=== PATIENT | male | born 1955 | race Caucasian/White ===

== ENCOUNTER → 2017-05-08 | Day surgery (SDC) | payer BC, OTHER ==
[2017-04-27 07:44] VITALS: Ht 177.8 cm; Wt 75.0 kg
[~2017-05-08] VITALS: Ht 177.8 cm; Wt 75.0 kg
[~2017-05-08] MED LIST: ASPI81TA28 PO; LIDOCAINE HCL 2% 2 ML VIAL (20MG/ML) ONE; LPT10 PO; METO50TA8 PO; PROPOFOL IV EMULSION 10 MG/ML 20 ML VIAL IV ONE; PSYL0.524 PO; SODIUM CHLORIDE 0.9% 500ML 500 ML IV ONE
--- NOTE | 2017-05-08 14:44 | Endo History and Physical ---
History & Physical Date of Service: May 08, 2017. Chief Complaint: SCREENING Referring Physician: DR FRANCO History of Present Illness 61 yo CF who presents for screening colonoscopy. Past Surgical History Hx Cardiac Surgery: No Hx Internal Defibrillator: No Hx Pacemaker: No Hx Abdominal Surgery: No Hx of Implantable Prosthesis: No Hx Post-Op Nausea and Vomiting: No Hx Cancer Surgery: No Hx Thoracic Surgery: No Hx Orthopedic: No Hx Urinary Tract Surgery: No Family History None Social History Smoking Status: Never Smoker Hx Substance Use: No Hx Alcohol Use: Yes (OCCASIONAL) Allergies Coded Allergies: No Known Allergies (Verified , 05/08/17) Current Medications Reported Home Medications Medications Dose Route/Sig Max Daily Dose Days Date Category Metamucil (Psyllium) 0.52 Gm Cap 1 Dose PO DAILY 04/27/17 Reported Aspirin Ec (Aspirin) 81 Mg Tab 81 Mg PO DAILY 04/27/17 Reported Lipitor (Atorvastatin Calcium) 10 Mg Tab 1 Tab PO QPM 04/27/17 Reported Toprol-Xl (Metoprolol Succinate) 50 Mg Tabcr 50 Mg PO QPM 06/16/07 Reported Vital Signs Weight (Kilograms): 75 Height (Feet): 5 Height (Inches): 10 Date Time Temp Pulse Resp B/P (MAP) Pulse Ox O2 Delivery O2 Flow Rate FiO2 05/08/17 14:31 36.4 92 18 133/84 (100) 99 Room Air Physical Exam General Appearance: WD/WN, no apparent distress Respiratory/Chest: Auscultation: breath sounds normal Cardiovascular: Heart Auscultation: RRR Abdomen: Bowel Sounds: normal Inspection & Palpation: soft, non-distended, no tenderness, guarding & rebound Assessment and Plan Assessment: 61 yo CF who presents for screening colonoscopy. Plan: Proceed with colonoscopy.
--- NOTE | 2017-05-08 15:27 | Discharge Instructions ---
Endoscopy Patient Instructions Date / Procedure(s) Performed May 08, 2017. Colonoscopy Allergy Information Coded Allergies: No Known Allergies (Verified , 05/08/17) Discharge Date / Findings May 08, 2017. Internal hemorrhoids Medication Instructions Stopped Medication(s): ASPIRIN 81MG-05/06/17 OK to resume all medications today as prescribed Reported Home Medications Medications Dose Route/Sig Max Daily Dose Days Date Category Metamucil (Psyllium) 0.52 Gm Cap 1 Dose PO DAILY 04/27/17 Reported Aspirin Ec (Aspirin) 81 Mg Tab 81 Mg PO DAILY 04/27/17 Reported Lipitor (Atorvastatin Calcium) 10 Mg Tab 1 Tab PO QPM 04/27/17 Reported Toprol-Xl (Metoprolol Succinate) 50 Mg Tabcr 50 Mg PO QPM 06/16/07 Reported Provider Instructions Activity Restrictions - No exercising or heavy lifting for 24 hours. - Do not drink alcohol the day of the procedure. - Do not drive a car or operate machinery until the day after the procedure. - Do not make any important decisions or sign important papers in 24 hours after the procedure. Following Day: - Return to full activity which may include returning to work/school. Diet Start your diet with liquids and light foods (jello, soup, juice, toast). Then eat your usual diet if not nauseated. Treatment For Common After Affects For mild abdominal pain, bloating, or excessive gas: - Rest - Eat lightly - Lie on right side Follow-Up Information Follow-up with DR FRANCO as scheduled Anesthesia Information What You Should Know You have had a procedure that required some medicine to reduce anxiety and discomfort. This treatment is called moderate sedation. After receiving the treatment, you may be sleepy, but you will be able to breathe on your own. The effects of the treatment may last for several hours. Follow these instructions along with Activity/Diet recommendations noted above: * Do NOT do anything where dizziness or clumsiness would be dangerous. * Rest quietly at home today, then you can be up and about tomorrow. * Have a responsible person stay with you the rest of today. * You may have had an I.V. today. If so, you may take the dressing off later today. Recommendations Call your doctor if: * Trouble breathing * Continuous vomiting for more than 24 hours * Temperature above 101 degrees * Severe abdominal pain or bloating * Pain not relieved by pain medicine ordered * There is increased drainage or redness from any incision * A large amount of rectal bleeding greater than 2-3 tablespoons. (If you had a polyp/s removed or have hemorrhoids, a small amount of blood - from the rectum is to be expected.) * You have any unanswered questions or concerns. IN THE EVENT OF A SERIOUS EMERGENCY, GO TO THE NEAREST EMERGENCY ROOM Your discharge instructions were prepared by provider Hawk Yeh. Patient Instructions Signature Page Tangela Valera Patient (or Guardian) Signature/Date: I have read and understand the instructions given to me by my caregivers. Caregiver/RN/Doctor Signature/Date: The above-named patient and/or guardian has received patient instructions on this date. + Original Patient Signature Page (only) stays with chart. Please make copy for patient.
--- NOTE | 2017-05-08 15:42 | GI REPORT ---
Procedure Date: 05/08/2017 2:50 PM Procedure: Colonoscopy Indications: Screening for colorectal malignant neoplasm Medicines: Monitored Anesthesia Care Complications: No immediate complications. Estimated Blood Loss: Estimated blood loss: none. Procedure: Pre-Anesthesia Assessment: - Prior to the procedure, a History and Physical was performed, and patient medications and allergies were reviewed. The patient's tolerance of previous anesthesia was also reviewed. The risks and benefits of the procedure and the sedation options and risks were discussed with the patient. All questions were answered, and informed consent was obtained. Prior Anticoagulants: The patient has taken aspirin, last dose was 2 days prior to procedure. ASA Grade Assessment: II - A patient with mild systemic disease. After reviewing the risks and benefits, the patient was deemed in satisfactory condition to undergo the procedure. After I obtained informed consent, the scope was passed under direct vision. Throughout the procedure, the patient's blood pressure, pulse, and oxygen saturations were monitored continuously. The scope was introduced through the anus and advanced to the terminal ileum. The colonoscopy was performed without difficulty. The patient tolerated the procedure well. The quality of the bowel preparation was good. The terminal ileum, ileocecal valve, appendiceal orifice, and rectum were photographed. Findings: The perianal and digital rectal examinations were normal. Non-bleeding internal hemorrhoids were found during retroflexion. The hemorrhoids were small. Impression: - Non-bleeding internal hemorrhoids. - No specimens collected. Recommendation: - Resume previous diet. - Continue present medications. - Repeat colonoscopy in 10 years for surveillance. - Return to primary care physician as previously scheduled. Hawk Yeh DO 05/08/2017 3:41:54 PM This report has been signed electronically. Note Initiated On: 05/08/2017 2:50 PM I attest to the content of the Intraoperative Record and orders documented therein, exceptions below
--- NOTE | 2017-05-08 15:53 | Anesthesiology Progress Note ---
Anesthesia Post Op Note Date & Time May 08, 2017 at 15:53 Vital Signs Pain Intensity: 0 Vital Signs Past 12 Hours Date Time Temp Pulse Resp B/P (MAP) Pulse Ox O2 Delivery O2 Flow Rate FiO2 05/08/17 15:40 75 16 127/86 (100) 97 Room Air 05/08/17 15:25 83 16 111/75 (87) 96 Room Air 05/08/17 14:31 36.4 92 18 133/84 (100) 99 Room Air Notes Mental Status: alert / awake / arousable, participated in evaluation Pt Amnestic to Procedure: Yes Nausea / Vomiting: adequately controlled Pain: adequately controlled Airway Patency, RR, SpO2: stable & adequate BP & HR: stable & adequate Hydration State: stable & adequate Anesthetic Complications: no major complications apparent
[2017-05-08 15:55] VITALS: BP 122/89; PULSE 69; O2SAT 95
== END | disposition home or self-care (01) ==
LOC: C.GI 14:03
PROVIDERS: ATTEND Internal Medicine
DX: Z12.11 Encounter for screening for malignant neoplasm of colon (principal); K64.8 Other hemorrhoids; I10 Essential (primary) hypertension; E78.5 Hyperlipidemia, unspecified; I48.0 Paroxysmal atrial fibrillation; K21.9 Gastro-esophageal reflux disease without esophagitis; Z79.82 Long term (current) use of aspirin